=== PATIENT | male | born 1990 | race Caucasian/White ===

== ENCOUNTER 2019-02-11 13:27 | Emergency (ER) | payer SELFPAY ==
[~2019-02-11] VITALS: Ht 177.8 cm; Wt 90.0 kg
[2019-02-11 13:29] VITALS: BP 144/87; PULSE 85; RESP 18; Ht 177.8 cm; Wt 90.0 kg
[2019-02-11] MEDS ORDERED: ONDANSETRON (ODT) 4 MG TAB ODT STA (13:52)
--- NOTE | 2019-02-11 13:53 | ERD ---
ER Documentation Chief Complaint Chief Complaint lac on lt forehead s/p hit by car door accidently , feels dizzy HPI 28-year-old male, previously healthy, presents to the emergency department, complaining of an open wound on the left forehead after sustaining an accidental, self-inflicted, blunt trauma with his car door; approximately 1 hour prior to arrival. No loss of consciousness. ROS All systems reviewed and are negative except as per history of present illness. Medications Home Meds Active Scripts Ibuprofen* (Motrin*) 400 Mg Tab, 400 MG PO Q6H PRN for PAIN AND OR ELEVATED TEMP, #20 TAB Prov:DONNY BARRERA MD 02/11/19 Hydrocodone/Acetaminophen ([place] 5-325 Tablet) 1 Each Tablet, 1 TAB PO Q6H PRN for PAIN, #7 TAB Prov:DONNY BARRERA MD 02/11/19 Allergies Allergies: Coded Allergies: No Known Allergy (Unverified , 02/11/19) PMhx/Soc Medical and Surgical Hx: pt denies Medical Hx, pt denies Surgical Hx FmHx Family History: No diabetes, No coronary disease Physical Exam Vitals Vital Signs Date Temp Pulse Resp B/P (MAP) Pulse Ox O2 O2 Flow FiO2 Time Delivery Rate 02/11/19 36.7 14:05 02/11/19 36.7 14:05 02/11/19 98.1 85 18 144/87 98 13:29 (106) Physical Exam Const: No acute distress Head: 3 cm linear laceration, vertical, in the left forehead area. Eyes: Normal Conjunctiva ENT: Normal External Ears, Nose and Mouth. Neck: Full range of motion. No meningismus. Resp: Clear to auscultation bilaterally Cardio: Regular rate and rhythm, no murmurs Abd: Soft, non tender, non distended. Normal bowel sounds Skin: No petechiae or rashes Back: No midline or flank tenderness Ext: No cyanosis, or edema Neur: Awake and alert Psych: Normal Mood and Affect Results 24 hrs Current Medications Medications Dose Sig/Alcira Start Time Status Last (Trade) Ordered Route PRN Stop Time Admin Dose Reason Admin 650 mg ONCE ONCE 02/11/19 DC 02/11/19 Acetaminophen PO 14:00 14:05 (Tylenol 02/11/19 14:01 Tab) Ibuprofen 400 mg ONCE ONCE 02/11/19 DC 02/11/19 (Motrin) PO 14:00 14:05 02/11/19 14:01 Ondansetron 4 mg ONCE STAT 02/11/19 DC 02/11/19 HCl (Zofran ODT 13:52 14:05 Odt) 02/11/19 13:58 Procedures/MDM Vital signs stable, the patient was evaluated for foreign body, open fracture, nerve/vascular/tendon injury. Neurovascular exam intact. Pertinent data: Procedure: Laceration repair The procedure was explained and consent obtained. Anesthesia: 1% lidocaine without epinephrine locally Location: Forehead Tendon/Joint/Nerves: No injury Foreign body: None detected after copious irrigation and exploration Technique: Simple Interrupted Sutures Complexity: No subcutaneous sutures/mucosal repair/edge excision Post Closure Length: 3 cm The patient tolerated the procedure well without complications. clinical impression and possible complications like infection and a scar where discussed with the patient who agreed with management. The patient is stable to be treated outpatient and will be discharged home with a Rx for ibuprofen and Cleveland, some side effects of prescribed medications (headache, rash, nausea, vomiting, diarrhea, interactions with other medications) were reviewed. The patient was instructed to follow up with the primary care provider in the next 48h for wound check. If symptoms persist, worsen or new symptoms develop, then patient should return to the ED immediately. Stitches can be removed in 7 days. Instructions explained and given directly by me to the patient with acknowledgment and demonstrated understanding. Disclaimer: Inadvertent spelling and grammatical errors are likely due to EHR/dictation software use and do not reflect on the overall quality of patient care. Also, please note that the electronic time recorded on this note does not necessarily reflect the actual time of the patient encounter. Departure Diagnosis: Primary Impression: Forehead laceration Condition: Stable Patient Instructions: Laceration, Face (Skin Glue) Additional Instructions: Thank you very much for allowing us to participate in your care. Your health and safety is our top priority at [facility]. The evaluation in the emergency department has been done to rule out an acute emergency. Chronic, clw-yizt-yomrriiehzz conditions may have not been evaluated; therefore, you need to follow up with a primary care provider in the next 48h. If symptoms persist, worsen or new symptoms develop, then patient desire uld return to the ED immediately. Call your primary care doctor TOMORROW for an appointment during the next 2-4 days and bring all the information provided. Have prescriptions filled and follow precisely the directions on the label. If the symptoms get worse and your provider is unavailable, return to the Emergency Department immediately. DONNY BARRERA MD Feb 11, 2019 13:53
[2019-02-11] MEDS ORDERED: IBUPROFEN 200 MG TAB PO ONE (14:00)
[2019-02-11] MEDS ORDERED: ACETAMINOPHEN 325 MG TAB PO ONE (14:00)
[2019-02-11] MEDS ORDERED: HYDR-4011 PO (14:07)
[2019-02-11] MEDS ORDERED: IBUP-1561 PO (14:07)
== END 2019-02-11 15:00 | disposition home or self-care (01) ==
LOC: FTE 13:27
DX: S01.81XA Laceration without foreign body of other part of head, initial encounter (principal); W22.8XXA Striking against or struck by other objects, initial encounter; Y92.810 Car as the place of occurrence of the external cause

== ENCOUNTER 2019-02-18 09:44 | Emergency (ER) | payer SELFPAY ==
[~2019-02-18] VITALS: Ht 177.8 cm; Wt 91.6 kg
[~2019-02-18 09:44] MED LIST: HYDR-4011 PO; IBUP-1561 PO
[2019-02-18 09:52] VITALS: BP 136/84; PULSE 63; RESP 18; Ht 177.8 cm; Wt 91.6 kg
--- NOTE | 2019-02-18 15:47 | ERD ---
ER Documentation Chief Complaint Chief Complaint suture removal HPI 28-year-old male presenting for suture removal of the hand. Patient had sutures placed 1 week ago without complication. Has normal range of motion. Patient is right-hand dominant. Denies other medical problems. NKDA. Surgical history denies. Social history denies ROS All systems reviewed and are negative except as per history of present illness. Medications Home Meds Active Scripts Ibuprofen* (Motrin*) 400 Mg Tab, 400 MG PO Q6H PRN for PAIN AND OR ELEVATED TEMP, #20 TAB Prov:DONNY BARRERA MD 02/11/19 Hydrocodone/Acetaminophen (Rosal[place] 5-325 Tablet) 1 Each Tablet, 1 TAB PO Q6H PRN for PAIN, #7 TAB Prov:DONNY BARRERA MD 02/11/19 Allergies Allergies: Coded Allergies: No Known Allergy (Unverified , 02/11/19) PMhx/Soc Hx Alcohol Use: No Hx Substance Use: No Hx Tobacco Use: No Smoking Status: Never smoker FmHx Family History: No diabetes, No coronary disease, No other Physical Exam Vitals Vital Signs Date Temp Pulse Resp B/P (MAP) Pulse Ox O2 O2 Flow FiO2 Time Delivery Rate 02/18/19 98.1 63 18 136/84 98 09:52 (101) Physical Exam GENERAL: The patient is well-appearing, well-nourished, in no acute distress CHEST: Clear to auscultation bilaterally. There are no rales, wheezes or rhonchi. HEART: Regular rate and rhythm. No murmurs, clicks, rubs or gallops. EXTREMITIES: Equal pulses bilaterally. There is no peripheral clubbing, cyanosis or edema. No focal swelling or erythema. Full range of motion. Grossly neurovascularly intact. NEUROLOGIC: Alert and oriented. Cranial nerves II through XII intact. Motor strength in all 4 extremities with 5 out of 5 strength. Sensation grossly intact. Normal speech and gait. SKIN: There is no apparent rash or petechiae. The skin is warm and dry. HEMATOLOGIC AND LYMPHATIC: There is no evidence of excessive bruising or lymphadenopathy. No gross cervical, axillary, or inguinal lymphadenopathy. Procedures/MDM ER Course: Sutures removed without complication. MDM: 28-year-old male presenting for sutures removed. Patient does not have findings consistent with tendon or ligament injury. I have low suspicion for retained foreign body. I have low suspicion for infectious process. Patient is discharged with strict ER precautions and told to follow-up with primary care within 1 to 2 days for close evaluation. Patient is told symptoms change or worsen to return immediately to the ER. All questions answered at discharge Departure Diagnosis: Primary Impression: Encounter for removal of sutures Condition: Stable Patient Instructions: Suture Removal, No Complication Referrals: [facility] YOU HAVE RECEIVED A MEDICAL SCREENING EXAM AND THE RESULTS INDICATE THAT YOU DO NOT HAVE A CONDITION THAT REQUIRES URGENT TREATMENT IN THE EMERGENCY DEPARTMENT. FURTHER EVALUATION AND TREATMENT OF YOUR CONDITION CAN WAIT UNTIL YOU ARE SEEN IN YOUR DOCTORS OFFICE WITHIN THE NEXT 1-2 DAYS. IT IS YOUR RESPONSIBILITY TO MAKE AN APPOINTMENT FOR FOLOW-UP CARE. IF YOU HAVE A PRIMARY DOCTOR --you should call your primary doctor and schedule an appointment IF YOU DO NOT HAVE A PRIMARY DOCTOR YOU CAN CALL OUR PHYSICIAN REFERRAL HOTLINE AT IF YOU CAN NOT AFFORD TO SEE A PHYSICIAN YOU CAN CHOSE FROM THE FOLLOWING [facility] [address] [facility] [address] [facility] [address] [facility] [address] [facility] [address] [facility]. [facility]. [address] Additional Instructions: FOLLOW UP WITH YOUR PRIMARY CARE PHYSICIAN TOMORROW.Return to this facility if you are not improving as expected. GARETH GASPAR PA-C Feb 18, 2019 15:47
== END 2019-02-18 10:47 | disposition home or self-care (01) ==
LOC: FTE 09:44
DX: Z48.02 Encounter for removal of sutures (principal)
CPT/HCPCS: 99281